=== PATIENT | male | born 1960 | race Caucasian/White ===

== ENCOUNTER 2017-01-22 14:58 | Emergency (ER) | payer BC ==
[~2017-01-22] VITALS: Ht 152.4 cm; Wt 71.0 kg
[~2017-01-22 14:58] MED LIST: ACET-141 PO; RANI150T9 PO; SUCR1TAB56 PO
[2017-01-22 15:00] VITALS: Ht 152.4 cm; Wt 71.0 kg
[2017-01-22] MEDS ORDERED: LIDOCAINE 2%/EPI MPF (SDV) 20 ML VIAL INJ STA (16:01)
[2017-01-22] MEDS ORDERED: ACETAMINOPHEN 325 MG TAB PO STA (16:01)
[2017-01-22] MEDS ORDERED: DIPHTH/TET/ACEL PERTUSS (ADULT) 0.5 ML VIAL IM ONE (16:30)
--- NOTE | 2017-01-22 17:22 | ERD ---
ER Documentation Chief Complaint Date/Time DATE: 01/22/17 TIME: 16:23 Chief Complaint LAC TO R HAND HPI This pleasant 56-year-old male patient presents to emergency department with right hand palmar laceration. 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 Patient reports pain, wound is covered with a dressing. Dressing removed revealing a large palmar laceration across digit 5 4 and 3, wound is not actively bleeding at this time. Patient denies any other injury, denies any finger pain or tingling, denies any wrist pain, or inability to flex or extend elbow. Dressing reapplied. Patient is unaware of his last tetanus. ROS All systems reviewed and are negative except as per history of present illness. Medications Home Meds Active Scripts Ibuprofen* (Motrin*) 400 Mg Tab, 400 MG PO Q6, #30 TAB Prov:NATHANAEL LITTLE 01/22/17 Ranitidine Hcl* (Zantac*) 150 Mg Tablet, 150 MG PO BID Y for EPIGASTRIC PAIN, # 30 TAB Prov:STEPHANIE NGO 01/01/16 Sucralfate* (Carafate*) 1 Gm Tab, 1 GM PO QID, #20 TAB Prov:STEPHANIE NGO 01/01/16 Reported Medications Acetaminophen* (Acetaminophen*) 500 MG Extra Strength Tablet, 500 MG PO Q4H Y for PAIN AND OR ELEVATED TEMP, TAB 01/01/16 Allergies Allergies: Coded Allergies: No Known Allergy (Unverified , 01/01/16) PMhx/Soc Medical and Surgical Hx: pt denies Medical Hx, pt denies Surgical Hx History of Surgery: No Anesthesia Reaction: No Hx Neurological Disorder: No Hx Respiratory Disorders: No Hx Cardiac Disorders: No Hx Psychiatric Problems: No Hx Miscellaneous Medical Probl: No Hx Alcohol Use: No Hx Substance Use: No Hx Tobacco Use: No Smoking Status: Never smoker Physical Exam Vitals Vital Signs Date Time Temp Pulse Resp B/P Pulse Ox O2 Delivery O2 Flow Rate FiO2 01/22/17 15:00 98.0 72 18 131/70 99 Vitals stable, triage notes reviewed Physical Exam Const: Well-appearing, well-hydrated, well-nourished, no acute distress Head: Atraumatic Eyes: Normal Conjunctiva PERRLA, EOMI ENT: Normal External Ears, Nose and Mouth mucous membranes moist Neck: Resp: Respirations even and unlabored, no respiratory distress Cardio: Abd: Skin: Right hand palmar laceration 3.5 cm across horizontal metacarpal 3,4,5 Back: Ext: Hand - bilateral: Skin: Palmar laceration 3.5cm in length horizontal across metacarpals 3 4 and 5 Compartments: Soft Sensation: Intact shoulder/pinky/middle finger/thumb web space Bones: Nontender Snuffbox: Nontender Joints: No effusion Wrist: Flex/Ext: Normal Uln/Radial deviation: Normal Pron/Supination Normal Finger: Flex/Ext: Full range of motion including isolated flexor digitorum superficialis/flexor digitorum profundus of each digit. Normal cascade of fingers no malrotation. Add/abd: Normal Thumb: Flex/Ext: Normal Opposition: Normal Thumbs up: Normal Neur: Awake and alert Psych: Normal Mood and Affect Results 24 hrs Current Medications Medications (Trade) Dose Ordered Sig/Alf Route PRN Reason Start Time Stop Time Status Last Admin Dose Admin Diphtheria/ Tetanus/Acell Pertussis (Adacel) 0.5 ml ONCE ONCE IM 01/22/17 16:30 01/22/17 16:31 DC 01/22/17 16:35 Lidocaine/ Epinephrine (Xylocaine 2%/ Epi Mpf(Sdv)) 20 ml ONCE STAT INJ 01/22/17 16:01 01/22/17 16:05 DC Acetaminophen (Tylenol Tab) 650 mg ONCE STAT PO 01/22/17 16:01 01/22/17 16:05 DC 01/22/17 16:34 Procedures/MDM Laceration Repair by me: Anesthesia: 2% lidocaine with epinephrine locally Location: Right palm Tendon/Joint/Nerves: No injury Foreign body: None detected after copious irrigation and exploration Technique: 7 simple Interrupted Sutures Complexity: No subcutaneous sutures/mucosal repair/ edge excision Post Closure Length: 3.5 cm Patient's bleeding was easily controlled in the department and there is no indication of anemia. No evidence of compartment syndrome, neurologic injury, vascular injury, open joint, tendon laceration, or foreign body. Patient is appropriate for outpatient follow up. Return to emergency department in 48 hours for wound check. Keep splint in place. Keep original dressing on. After wound check change dressing over the wound at least once a day. If dressing becomes wet change immediately. He is on the soap and water to clean your wound. Use [id number] antibiotic ointment twice a day. Observe 1 daily for signs of infection which include increased pain, increased redness especially redness spreading towards your heart, post drainage or increased swelling. If there are any of these signs or if you are not sure return as soon as possible. Return for suture removal 12 days after original suture placement. I feel the patient is stable for discharge at this time. I have discussed results, examination findings, the treatment plan with the patient and family present prior to discharge. Indications for emergent reevaluation, side effects of medication were also discussed. All questions were answered. Patient verbalizes understanding and agrees with plan of care. Departure Patient Instructions: Laceration, All, Wound Care Additional Instructions: Thank you for for coming to for your care today. Please ask your nurse or provider if you have questions about your care today and do not leave until all your questions have been answered. Please use any medications given as directed and follow-up with your doctor (or the doctor you were referred to) in the next 2-3 days. If you do not have a primary care doctor you may follow up at the [facility] (listed below). You may also use motrin and tylenol as needed for fever and/or pain unless instructed otherwise by your provider or nurse. Indications for more urgent follow-up have been discussed, but you may return to the Emergency Department at ANY time for any worrisome or worsening symptoms. If you have abdominal pain, please know that no test or exam you received is perfect and you should follow up within 8 hours for continued pain. If you had any imaging studies today, such as an X-Ray or CT Scan, these studies will be reviewed later by a radiologist. You will be called if there are important findings that were not identified today, so make sure the contact information you provided at registration is correct. If you received any narcotic pain control medicine today, such as Vicodin, Morphine or Dilaudid, your coordination and judgment may be affected for a number of hours. Please do not drive or operate heavy machinery, and you may want someone to assist you at home. If you were given a prescription for narcotic medication, be aware that it is very addictive- use sparingly and only if necessary. Comments Return to emergency department in 48 hours for wound check. Keep splint in place. Keep original dressing on. After wound check change dressing over the wound at least once a day. If dressing becomes wet change immediately. He is on the soap and water to clean your wound. Use [id number] antibiotic ointment twice a day. Observe 1 daily for signs of infection which include increased pain, increased redness especially redness spreading towards your heart, post drainage or increased swelling. If there are any of these signs or if you are not sure return as soon as possible. Return for suture removal 12 days after original suture placement. NATHANAEL LITTLE Jan 22, 2017 16:55
[2017-01-22] MEDS ORDERED: IBUP400T22 PO (17:29)
== END 2017-01-22 18:01 | disposition home or self-care (01) ==
LOC: FTE 14:58
DX: S61.411A Laceration without foreign body of right hand, initial encounter (principal); W26.8XXA Contact with other sharp object(s), not elsewhere classified, initial encounter; Y92.89 Other specified places as the place of occurrence of the external cause; Z23 Encounter for immunization
CPT/HCPCS: 90471; 90715

== ENCOUNTER 2017-01-24 08:46 | Emergency (ER) | payer BC ==
[~2017-01-24] VITALS: Ht 162.6 cm; Wt 72.5 kg
[~2017-01-24 08:46] MED LIST changes: +IBUP400T22 PO
[2017-01-24 08:47] VITALS: Ht 162.6 cm; Wt 72.5 kg
--- NOTE | 2017-01-24 09:02 | ERD ---
ER Documentation Chief Complaint Date/Time DATE: 01/24/17 TIME: 09:00 Chief Complaint 2nd day wound check joseph STEINER Is a 56-year-old male who presents the emergency department today for a wound check. Patient denies any fevers or chills. He has not taken a medication. ROS All systems reviewed and are negative except as per history of present illness. Medications Home Meds Active Scripts Ibuprofen* (Motrin*) 400 Mg Tab, 400 MG PO Q6, #30 TAB Prov:ANABELYESIKANATHANAEL 01/22/17 Ranitidine Hcl* (Zantac*) 150 Mg Tablet, 150 MG PO BID Y for EPIGASTRIC PAIN, # 30 TAB Prov:STEPHANIE NGO 01/01/16 Sucralfate* (Carafate*) 1 Gm Tab, 1 GM PO QID, #20 TAB Prov:STEPHANIE NGO 01/01/16 Reported Medications Acetaminophen* (Acetaminophen*) 500 MG Extra Strength Tablet, 500 MG PO Q4H Y for PAIN AND OR ELEVATED TEMP, TAB 01/01/16 Allergies Allergies: Coded Allergies: No Known Allergy (Unverified , 01/24/17) PMhx/Soc History of Surgery: No Anesthesia Reaction: No Hx Neurological Disorder: No Hx Respiratory Disorders: No Hx Cardiac Disorders: No Hx Psychiatric Problems: No Hx Miscellaneous Medical Probl: No Hx Alcohol Use: No Hx Substance Use: No Hx Tobacco Use: No Physical Exam Vitals Vital Signs Date Time Temp Pulse Resp B/P Pulse Ox O2 Delivery O2 Flow Rate FiO2 01/24/17 08:47 97.5 71 16 111/69 97 Physical Exam Const: No acute distress Head: Atraumatic Eyes: Normal Conjunctiva ENT: Normal External Ears, Nose and Mouth. Neck: Full range of motion..~ No meningismus. Resp: Clear to auscultation bilaterally Cardio: Regular rate and rhythm, no murmurs Abd: Soft, non tender, non distended. Normal bowel sounds Skin: Right hand with evidence of 7 sutures placed on palmar aspect. No erythema or warmth. No purulent drainage Back: No midline or flank tenderness Ext: Right hand with evidence of 7 sutures placed on palmar aspect. No erythema or warmth. No purulent drainage. Full active range of motion of all digits. Good cap refill. Pulses 2+. 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 Patient is afebrile and otherwise well-appearing. He has no pain complaints. Patient had 7 sutures placed. Wound appears to be healing well. There is no erythema or warmth or purulent drainage. Low suspicion for sepsis, deep space infection. Patient had initially been placed in a splint in extension. I have removed the splint as I do not feel it is necessary at this time. Patient was instructed to return in 5-7 days for suture removal. He was instructed to keep the wound clean and dry. Patient understood. Patient received a tetanus vaccine on his last visit. At this time the patient is stable for discharge and outpatient management. Patient should follow up with their PCP in the next 1-2 days. They may return to the emergency department sooner for any persistent or worsening of symptoms. Patient understood and agreed with the plan. Departure Diagnosis: Primary Impression: Encounter for wound re-check Condition: Fair Patient Instructions: Wound Check, Lac F/U (No Infection) Additional Instructions: Llame al doctor CORINA y gregory wallace DANIE PARA DENTRO DE 1-2 RECINOS.Dgale a la secretaria que nosotros le instruimos hacer esta danie.Avise o llame si vega condicin se empeora antes de la danie. Regresa aqui si peor o no mejor. Keep wound clean and dry Suture removal in 5-7 days MARIBEL MANCIA PA-C Jan 24, 2017 09:02
== END 2017-01-24 09:17 | disposition home or self-care (01) ==
LOC: FTE 08:46
DX: Z48.01 Encounter for change or removal of surgical wound dressing (principal)
CPT/HCPCS: 99281

== ENCOUNTER 2017-06-20 00:26 | Emergency (ER) | payer SELFPAY ==
[~2017-06-20] VITALS: Ht 162.6 cm; Wt 74.4 kg
[2017-06-20 00:34] VITALS: Ht 162.6 cm; Wt 74.4 kg
--- NOTE | 2017-06-20 02:14 | ERD ---
ER Documentation Chief Complaint Chief Complaint states felt body shivering after accidentally inhaling nail mosotho remover HPI This 56-year-old male patient presents to emergency department for evaluation of chills after inhaling nail mosotho remover patient has no other symptoms, denies shortness of breath, cough, fever, denies caffeine use excessively, states he may have had 2 cups of coffee today, denies cold medicine, or allergy medicine. Patient reports the chills feeling has subsided but he feels slightly tremulous ROS All systems reviewed and are negative except as per history of present illness. Medications Home Meds Active Scripts Ibuprofen* (Motrin*) 400 Mg Tab, 400 MG PO Q6, #30 TAB Prov:ANABELNATHANAEL 01/22/17 Ranitidine Hcl* (Zantac*) 150 Mg Tablet, 150 MG PO BID Y for EPIGASTRIC PAIN, # 30 TAB Prov:STEPHANIE NGO 01/01/16 Sucralfate* (Carafate*) 1 Gm Tab, 1 GM PO QID, #20 TAB Prov:STEPHANIE NGO 01/01/16 Reported Medications Acetaminophen* (Acetaminophen*) 500 MG Extra Strength Tablet, 500 MG PO Q4H Y for PAIN AND OR ELEVATED TEMP, TAB 01/01/16 Allergies Allergies: Coded Allergies: No Known Allergy (Unverified , 06/20/17) PMhx/Soc History of Surgery: No Anesthesia Reaction: No Hx Neurological Disorder: No Hx Respiratory Disorders: No Hx Cardiac Disorders: No Hx Psychiatric Problems: No Hx Miscellaneous Medical Probl: No Hx Alcohol Use: No Hx Substance Use: No Hx Tobacco Use: No Physical Exam Vitals Vital Signs Date Time Temp Pulse Resp B/P Pulse Ox O2 Delivery O2 Flow Rate FiO2 06/20/17 00:34 98.8 89 20 140/87 97 Vitals stable, triage notes reviewed Physical Exam Const: Well-nourished, well-hydrated, well-appearing 56-year-old male patient no acute distress Head: Atraumatic no laceration, hematoma, or abrasion Eyes: Normal Conjunctiva PERRLA, EOMI, no nystagmus Neck: Full range of motion..~ No meningismus. Resp: Respirations even and unlabored, clear to auscultation bilaterally no rales wheezes or rhonchi, no pain with deep breathing, no respiratory distress Cardio: Regular rate and rhythm, no murmurs S1-S2, no S3-S4, no murmur Ext: No cyanosis, or edema, no obvious tremor Neur: Awake and alert Psych: Normal Mood and Affect Results 24 hrs Current Medications Medications (Trade) Dose Ordered Sig/Alf Route PRN Reason Start Time Stop Time Status Last Admin Dose Admin Acetaminophen (Tylenol Tab) 650 mg ONCE ONCE PO 06/20/17 02:30 06/20/17 02:31 DC Diphenhydramine HCl (Benadryl) 25 mg ONCE ONCE PO 06/20/17 02:30 12 02:31 DC Procedures/MDM This 56-year-old male patient presents to emergency department with vague symptoms of feeling chills after inhaling nail mosotho remover, patient reports he is slightly tremulous now but symptoms have improved, he has not had this reaction before, he has been around nail mosotho remover in the past. Patient denies excessive caffeine use, Sudafed, allergy medication. Denies any cold symptoms, patient denies chest pain, shortness of breath, palpitations, or dizziness. Emergency room course includes history and physical exam, plan to treat with Tylenol, Benadryl, reassess after 20 minutes, patient reassessed with alleviation of symptoms. Patient will be discharged home to follow-up with primary care physician, diagnosis of chills. Patient is stable with no new complaints during ER course, clinically there is no current evidence to suggest meningitis, sepsis, acute abdomen, acute coronary syndromes, pulmonary embolism or any other emergent condition appearing to require further evaluation or hospitalization. I feel the patient is stable for discharge at this time. I have discussed results, examination findings, the treatment plan with the patient and family present prior to discharge. Indications for emergent reevaluation, side effects of medication were also discussed. All questions were answered. Patient verbalizes understanding and agrees with plan of care. Departure Diagnosis: Primary Impression: Chills Condition: Good Patient Instructions: Normal Exam, (Child) (Adult) [facility] Additional Instructions: Thank you for for coming to [facility] for your care today. Please ask your nurse or provider if you have questions about your care today and do not leave until all your questions have been answered. Please use any medications given as directed and follow-up with your doctor (or the doctor you were referred to) in the next 2-3 days. If you do not have a primary care doctor you may follow up at the [facility] (listed below). You may also use motrin and tylenol as needed for fever and/or pain unless instructed otherwise by your provider or nurse. Indications for more urgent follow-up have been discussed, but you may return to the Emergency Department at ANY time for any worrisome or worsening symptoms. If you have abdominal pain, please know that no test or exam you received is perfect and you should follow up within 8 hours for continued pain. If you had any imaging studies today, such as an X-Ray or CT Scan, these studies will be reviewed later by a radiologist. You will be called if there are important findings that were not identified today, so make sure the contact information you provided at registration is correct. If you received any narcotic pain control medicine today, such as Vicodin, Morphine or Dilaudid, your coordination and judgment may be affected for a number of hours. Please do not drive or operate heavy machinery, and you may want someone to assist you at home. If you were given a prescription for narcotic medication, be aware that it is very addictive- use sparingly and only if necessary. NATHANAEL LITTLE Jun 20, 2017 02:14
[2017-06-20] MEDS ORDERED: ACETAMINOPHEN 325 MG TAB PO ONE (02:30)
[2017-06-20] MEDS ORDERED: DIPHENHYDRAMINE 25 MG CAP PO ONE (02:30)
[2017-06-20 03:10] VITALS: BP 127/71; PULSE 66; RESP 20; TEMP 98.4
== END 2017-06-20 03:11 | disposition home or self-care (01) ==
LOC: FTE 00:26
DX: R68.83 Chills (without fever) (principal)
CPT/HCPCS: 99282

== ENCOUNTER 2019-01-04 11:35 | Emergency (ER) | payer OTHER ==
[~2019-01-04] VITALS: Wt 71.5 kg
[~2019-01-04 11:35] MED LIST changes: +IBUP-1561 PO; -IBUP400T22 PO; +RANI150T35 PO; -RANI150T9 PO
[2019-01-04 12:08] VITALS: Wt 71.5 kg
[2019-01-04] MEDS ORDERED: ONDANSETRON 4 MG INJ IV STA (12:31)
[2019-01-04] MEDS ORDERED: KETOROLAC 15 MG INJ IV STA (12:31)
[2019-01-04] MEDS ORDERED: SOD CHLORIDE 0.9% 1,000 ML IV STA (12:31)
--- NOTE | 2019-01-04 13:08 | ERD ---
ER Documentation Chief Complaint Chief Complaint l. sided abd pain w dizziness and sweating this am, observed writhing HPI This is a 58-year-old man complaining of left upper and lower abdominal pain beginning this morning with some nausea. He states the pain is severe nonexertional nonradiating and denies previous episodes. Patient denies right- sided abdominal pain, he has had no fevers or chills, no dysuria or hematuria, no chest pain or shortness of breath ROS All systems reviewed and are negative except as per history of present illness. Medications Home Meds Active Scripts Oxycodone HCl/Acetaminophen (Percocet 5-325 mg Tablet) 1 Each Tablet, 1 EACH PO TID PRN for PAIN LEVEL 6-10, #12 TAB Prov:ALYSIA HUNT MD 01/04/19 Ibuprofen* (Motrin*) 600 Mg Tab, 600 MG PO Q8 PRN for PAIN AND/OR INFLAMMATION, #60 TAB Prov:ALYSIA HUNT MD 01/04/19 Cephalexin* (Cephalexin*) 500 Mg Capsule, 500 MG PO Q8, #21 CAP Prov:ALYSIA HUNT MD 01/04/19 Tamsulosin Hcl* (Flomax*) 0.4 Mg Cap.er.24h, 0.4 MG PO QPM, #5 CAP Prov:ALYSIA HUNT MD 01/04/19 Ibuprofen* (Motrin*) 400 Mg Tab, 400 MG PO Q6, #30 TAB Prov:NATHANAEL LITTLE 01/22/17 Ranitidine Hcl* (Zantac*) 150 Mg Tablet, 150 MG PO BID PRN for EPIGASTRIC PAIN, #30 TAB Prov:STEPHANIE NGO 01/01/16 Sucralfate* (Carafate*) 1 Gm Tab, 1 GM PO QID, #20 TAB Prov:STEPHANIE NGO 01/01/16 Reported Medications Acetaminophen* (Acetaminophen*) 500 MG Extra Strength Tablet, 500 MG PO Q4H PRN for PAIN AND OR ELEVATED TEMP, TAB 01/01/16 Allergies Allergies: Coded Allergies: No Known Allergy (Unverified , 06/20/17) PMhx/Soc History of Surgery: No Anesthesia Reaction: No Hx Neurological Disorder: No Hx Respiratory Disorders: No Hx Cardiac Disorders: No Hx Psychiatric Problems: No Hx Miscellaneous Medical Probl: No Hx Alcohol Use: No Hx Substance Use: No Hx Tobacco Use: No Smoking Status: Never smoker Physical Exam Vitals Vital Signs Date Temp Pulse Resp B/P (MAP) Pulse Ox O2 O2 Flow FiO2 Time Delivery Rate 01/04/19 97.8 69 18 107/69 99 Room Air 15:19 (82) 01/04/19 66 18 114/78 99 Room Air 14:06 (90) 01/04/19 97.4 61 20 111/62 100 12:08 (78) Physical Exam GENERAL: Well-developed, well-nourished, well-hydrated, moderate discomfort, afebrile HEENT: Moist mucous membranes, pink conjunctiva, no cervical spine tenderness or step-off deformities, no goiter, no jaundice or icterus, extraocular movements intact without pain. No submandibular induration, and no pharyngeal erythema NEURO: Alert and oriented 3, cranial nerves II through XII intact bilaterally, pupils equal round reactive to light, no focal deficits or facial asymmetry, sensation intact distally Strength 5/5 in upper and lower extremities bilaterally CARDIAC: Regular rate and rhythm, no murmurs rubs or gallops LUNGS: Clear bilaterally no wheezing crackles or stridor ABDOMEN: Soft nontender, no guarding, no rigidity, no rebound, no psoas sign no obturator sign. Normoactive bowel sounds Result Diagram: 01/04/19 1251 01/04/19 1250 Results 24 hrs Laboratory Tests Test 01/04/19 12:50 01/04/19 12:51 Urine Color STEVEN Urine Clarity CLOUDY Urine pH 5.0 Urine Specific [place] 1.027 Urine Ketones TRACE mg/dL Urine Nitrite NEGATIVE mg/dL Urine Bilirubin NEGATIVE mg/dL Urine Urobilinogen NEGATIVE mg/dL Urine Leukocyte Esterase NEGATIVE Eulogio/ul Urine Microscopic RBC > 182 /HPF Urine Microscopic WBC 14 /HPF Urine Mucus MODERATE /HPF Urine Yeast (Budding) MODERATE /HPF Urine Hemoglobin 3+ mg/dL Urine Glucose NEGATIVE mg/dL Urine Total Protein 1+ mg/dl Sodium Level 141 mmol/L Potassium Level 4.1 mmol/L Chloride Level 104 mmol/L Carbon Dioxide Level 25 mmol/L Anion Gap 12 Blood Urea Nitrogen 17 mg/dl Creatinine 0.95 mg/dl Est Glomerular Filtrat Rate mL/min > 60 mL/min Glucose Level 158 mg/dl Calcium Level 8.8 mg/dl Total Bilirubin 0.6 mg/dl Direct Bilirubin 0.00 mg/dl Indirect Bilirubin 0.6 mg/dl Aspartate Amino Transf (AST/SGOT) 22 IU/L Alanine Aminotransferase (ALT/SGPT) 18 IU/L Alkaline Phosphatase 103 IU/L Total Protein 8.1 g/dl Albumin 4.2 g/dl Globulin 3.90 g/dl Albumin/Globulin Ratio 1.07 Lipase 52 U/L White Blood Count 11.3 10^3/ul Red Blood Count 4.87 10^6/ul Hemoglobin 14.3 g/dl Hematocrit 42.9 % Mean Corpuscular Volume 88.1 fl Mean Corpuscular Hemoglobin 29.4 pg Mean Corpuscular Hemoglobin Concent 33.3 g/dl Red Cell Distribution Width 12.6 % Platelet Count 185 10^3/UL Mean Platelet Volume 11.2 fl Immature Granulocytes % 0.400 % Neutrophils % 87.1 % Lymphocytes % 9.2 % Monocytes % 3.0 % Eosinophils % 0.1 % Basophils % 0.2 % Nucleated Red Blood Cells % 0.0 /100WBC Immature Granulocytes # 0.040 10^3/ul Neutrophils # 9.9 10^3/ul Lymphocytes # 1.0 10^3/ul Monocytes # 0.3 10^3/ul Eosinophils # 0.0 10^3/ul Basophils # 0.0 10^3/ul Nucleated Red Blood Cells # 0.0 10^3/ul Current Medications Medications Dose Sig/Alf Start Time Status Last (Trade) Ordered Route PRN Stop Time Admin Dose Reason Admin Sodium 1,000 ml @ Q1H STAT 01/04/19 DC 01/04/19 Chloride 1,000 mls/hr IV 12:31 01/04/19 12:49 13:30 Ondansetron 4 mg ONCE STAT 01/04/19 DC 01/04/19 HCl (Zofran IV 12:31 01/04/19 12:49 Inj) 12:32 Ketorolac 15 mg ONCE STAT 01/04/19 DC 01/04/19 Tromethamine IV 12:31 01/04/19 12:49 (Toradol) 12:32 Fluconazole 200 ml @ ONCE ONCE 01/04/19 DC 01/04/19 100 mls/hr IVPB 13:30 01/04/19 13:58 15:29 Ceftriaxone 50 ml @ ONCE ONCE 01/04/19 DC 01/04/19 Sodium 100 mls/hr IVPB 13:30 01/04/19 13:33 13:59 Procedures/MDM IV line was established patient was placed on electronic device monitor rhythm strip revealed a sinus rhythm at about 80 bpm with upright P and T waves. Patient was afebrile I administered 1 L normal saline IV, Toradol 15 mg IV, Zofran 4 mg IV CBC and electrolytes were normal, liver function tests were normal, urine analysis was positive for RBCs, WBCs, and fungus. I treated the patient here with fluconazole 400 mg IV x1 and ceftriaxone [address] scan of the abdomen pelvis was performed revealing a left proximal ureter stone measuring 4 mm in size with some possible pericolonic inflammatory changes to the distal ascending colon, please refer to radiologist dictation for full report. I spoke to the urologist on-call Dr. Yeager regarding the patient's presentation, symptomatology, and CT scan findings, he recommended outpatient management with Flomax and antibiotics. Patient's vital signs are normal at this time and his pain is completely resolved, he is urinating without difficulty and looks well. He will be discharged with oral antibiotics differential diagnoses considered, included but not limited to acute coronary syndrome, pulmonary embolism, aortic dissection, abdominal aortic aneurysm, sepsis, stroke, meningitis, encephalitis, pneumonia, appendicitis, cholecystitis, bowel obstruction, pyelonephritis, nephrolithiasis, cystitis, as well as metabolic, hematologic, and electrolyte abnormalities. As well as abscess, cellulitis, fractures, and dislocations. Patient feels much better at this time, and vital signs are normal, symptoms have improved. I did give strict instructions to return to the ED if symptoms continue or worsen, patient will otherwise follow-up with primary care physician. Patient understood instructions and agreed to plan. Disclaimer: Inadvertent spelling and grammatical errors are likely due to EHR/dictation software use and do not reflect on the overall quality of patient care. Also, please note that the electronic time recorded on this note does not necessarily reflect the actual time of the patient encounter. Departure Diagnosis: Primary Impression: Ureterolithiasis Additional Impression: Acute UTI Condition: Good ALYSIA HUNT MD Jan 04, 2019 13:08
[2019-01-04] MEDS ORDERED: OXYC-279 PO (13:28)
[2019-01-04] MEDS ORDERED: IBUP-1542 PO (13:28)
[2019-01-04] MEDS ORDERED: TAMS-14 PO (13:28)
[2019-01-04] MEDS ORDERED: CEPH500C PO (13:28)
[2019-01-04] MEDS ORDERED: FLUCONAZOLE 400 MG/NS (PMX) 200 ML IVPB ONE (13:30)
[2019-01-04] MEDS ORDERED: CEFTRIAXONE 1 GM/50 ML (PMX) 50 ML IVPB ONE (13:30)
[2019-01-04 15:19] VITALS: BP 107/69; PULSE 69; RESP 18
== END 2019-01-04 15:28 | disposition home or self-care (01) ==
LOC: E/R 11:35
DX: N20.1 Calculus of ureter (principal); N39.0 Urinary tract infection, site not specified; R11.0 Nausea
CPT/HCPCS: 74176; 80053; 81001; 83690; 85025; J0696; J1450; J1885; J2405; J7030; 36415; 96374; 96375